=== PATIENT | male | born 1950 | race Caucasian/White ===

== ENCOUNTER → 2016-07-03 | Outpatient (CLI) | payer MEDICARE ==
[~2016-07-03] MED LIST: ALDACTONE 25MG25 M1 PO; ALDACTONE25 MG PO; ASPIRIN 32325 MG/TAB PO; ASPIRIN 81M81 MG/TA2 PO; ASPIRIN E.C. 8181 MG PO; BUMEX 1MG TA1 MG/TA1 PO; CLONAZEPAM PO; CLONAZEPAM0.5 M1 PO; CORDARONE200 MG/TAB PO; K-DUR20 MEQ PO; KLONOPIN 1MG1 MG PO; LASIX 20MG TABL20 MG PO; LASIX 40MG TABL40 MG PO; LASIX20 MG PO; LIPITOR 10MG10 MG PO; LIPITOR20 MG PO; LOPRESSOR 225 MG/TAB PO; MICRO-K 1010 MEQ PO; NITROQUICK0.4 MG SL; NITROSTAT0.4 MG/TAB SL; PACERONE200 MG PO; PAXIL PO; PEPCID 20MG TAB20 MG PO; PLAVIX 75MG TAB75 MG PO; PRILOSEC 20MG20 MG PO; PRINIVIL10 MG PO; PRINIVIL2.5 MG PO; PROVENTIL0.09 MG/A1 IH; TOPROL XL 50MG50 MG PO; ZESTRIL 5MG5 MG PO; ZESTRIL5 MG PO; ZOCOR 20MG20 MG PO; ZOCOR 40MG40 MG PO; ZOCOR 80MG80 MG PO; ZOCOR40 MG PO
== END ==
LOC: COL.RAD 06-30 09:45
DX: I71.4 Abdominal aortic aneurysm, without rupture (principal)

== ENCOUNTER → 2017-01-05 | Outpatient (CLI) | payer MEDICARE | LOC: COL.RAD 09:24 | DX: I71.4 Abdominal aortic aneurysm, without rupture (principal); I70.0 Atherosclerosis of aorta ==

== ENCOUNTER → 2017-01-15 | Outpatient (CLI) | payer MEDICARE | LOC: COL.RAD 09:06 | DX: I71.4 Abdominal aortic aneurysm, without rupture (principal); J98.4 Other disorders of lung; N20.0 Calculus of kidney; N32.89 Other specified disorders of bladder; J90 Pleural effusion, not elsewhere classified; I51.7 Cardiomegaly; I25.10 Atherosclerotic heart disease of native coronary artery without angina pectoris; R59.0 Localized enlarged lymph nodes | CPT/HCPCS: Q9967 ==

== ENCOUNTER 2017-04-03 06:48 | Day surgery (SDC) | payer MEDICARE, OTHER ==
[2017-04-03] VITALS (10 sets, daily range): BP systolic 112–128; BP diastolic 71–85; PULSE 59–60; TEMP 97.9–98.1
[~2017-04-03] VITALS: Ht 165.1 cm; Wt 80.9 kg
[2017-04-03] MEDS ORDERED: ENTRESTO 49 MG1 EACH PO (07:44)
[2017-04-03 07:49] LABS: HEMATOCRIT 43.3 % (42.0-52.0); MEAN CELL VOLUME 90 fl (80.0-100.0); MEAN CORPUSCULAR HEMOGLOBIN 29 pg (27.0-31.0); MEAN CORPUSCULAR HGB CONC 32 g/dl (33.0-37.0); MEAN PLATELET VOLUME 11.8 fl (7.4-10.4); PLATELET COUNT 173 K/mm3 (130-400); RED BLOOD COUNT 4.82 M/mm3 (4.20-5.60); WHITE BLOOD COUNT 8.1 K/mm3 (4.8-10.8)
[2017-04-03 07:58] LABS: PROTHROMBIN TIME 11.3 SECONDS (9.7-12.8)
[2017-04-03 07:59] LABS: CALCIUM 8.9 mg/dL (8.4-10.2); CREATININE, serum 1.05 mg/dL (0.66-1.25); POTASSIUM 4.1 mmol/L (3.4-5.0)
[2017-04-03] MEDS ORDERED: CEPHALEXIN500 M1 PO (10:15)
== END 2017-04-03 14:00 | disposition home or self-care (01) ==
LOC: COL.CAR 06:48
PROVIDERS: Internal Medicine Interventional Cardiology
DX: Z45.010 Encounter for checking and testing of cardiac pacemaker pulse generator [battery] (principal); I25.5 Ischemic cardiomyopathy; I25.10 Atherosclerotic heart disease of native coronary artery without angina pectoris; I50.22 Chronic systolic (congestive) heart failure; I71.4 Abdominal aortic aneurysm, without rupture; I48.91 Unspecified atrial fibrillation; Z79.01 Long term (current) use of anticoagulants; Z95.818 Presence of other cardiac implants and grafts; Z87.891 Personal history of nicotine dependence
CPT/HCPCS: C1882; J0690; J2250; J3010; J7030; J7050

== ENCOUNTER → 2018-05-05 | Outpatient (CLI) | payer MEDICARE, OTHER ==
[~2018-05-05] MED LIST changes: +CEPHALEXIN500 M1 PO; +ENTRESTO 49 MG1 EACH PO
== END ==
LOC: COL.RAD 11:22
DX: M47.812 Spondylosis without myelopathy or radiculopathy, cervical region (principal); M50.321 Other cervical disc degeneration at C4-C5 level; M48.02 Spinal stenosis, cervical region

== ENCOUNTER → 2018-06-24 | Outpatient (CLI) | payer MEDICARE, OTHER | LOC: COL.RAD 13:34 | DX: I71.4 Abdominal aortic aneurysm, without rupture (principal); Z95.828 Presence of other vascular implants and grafts | CPT/HCPCS: Q9967 ==

== ENCOUNTER → 2018-06-28 | Outpatient (CLI) | payer MEDICARE, OTHER | LOC: COL.RAD 10:06 | DX: K80.00 Calculus of gallbladder with acute cholecystitis without obstruction (principal); K76.0 Fatty (change of) liver, not elsewhere classified ==

== ENCOUNTER → 2018-07-09 | Outpatient (CLI) | payer MEDICARE, OTHER | LOC: COL.RAD 09:44 | DX: K81.9 Cholecystitis, unspecified (principal) | CPT/HCPCS: A9537 ==

== ENCOUNTER → 2018-07-13 | Outpatient (CLI) | payer MEDICARE, OTHER | LOC: MHCPAIN 10:09 | DX: G89.29 Other chronic pain (principal); M47.812 Spondylosis without myelopathy or radiculopathy, cervical region; R51 Headache; M54.81 Occipital neuralgia; R42 Dizziness and giddiness | CPT/HCPCS: G0463 ==

== ENCOUNTER → 2018-09-06 | Outpatient (CLI) | payer MEDICARE, OTHER | LOC: MHCPAIN 10:38 | DX: G89.29 Other chronic pain (principal); R51 Headache; M47.812 Spondylosis without myelopathy or radiculopathy, cervical region | CPT/HCPCS: G0463 ==

== ENCOUNTER 2019-02-25 06:20 | Emergency (ER) | payer MEDICARE, OTHER ==
[~2019-02-25] VITALS: Ht 165.1 cm; Wt 81.8 kg
[2019-02-25 06:21] VITALS: TEMP 98.2
[2019-02-25 07:15] LABS: BASO % 0.1 % (0.0-2.0); EOS % 0.1 % (0-4.0); GRAN # 11.6 (1.4-6.5); GRAN % 85.8 % (42.2-75.2); HEMATOCRIT 42.9 % (42.0-52.0); LYMPH # 0.8 (1.2-3.4); LYMPH % 6.1 % (20.0-51.0); MEAN CELL VOLUME 93 fl (80.0-100.0); MEAN CORPUSCULAR HEMOGLOBIN 30 pg (27.0-31.0); MEAN CORPUSCULAR HGB CONC 33 g/dl (33.0-37.0); MEAN PLATELET VOLUME 11.3 fl (7.4-10.4); MONO % 7.1 % (1.7-9.3); PLATELET COUNT 162 K/mm3 (130-400); RED BLOOD COUNT 4.63 M/mm3 (4.20-5.60); REDCELL DISTRIBUTION WIDTH-CV 14.2 % (11.5-14.5)
[2019-02-25 07:24] LABS: ALANINE AMINOTRANSFERASE 28 U/L (21-72); ALBUMIN 3.5 gm/dL (3.5-5.0); ALKALINE PHOSPHATASE 121 U/L (50-136); ANION GAP 9 mmol/L (7-16); AST,SGOT 29 U/L (15-37); BILIRUBIN,TOTAL 2.6 mg/dL (0.0-1.0); BLOOD UREA NITROGEN 10 mg/dL (9-20); CALCIUM 8.5 mg/dL (8.4-10.2); CARBON DIOXIDE 23 mmol/L (22-30); CHLORIDE 104 mmol/L (98-107); GLUCOSE 129 mg/dL (74-106); POTASSIUM 4.1 mmol/L (3.4-5.0); SODIUM 136 mmol/L (137-145); TOTAL PROTEIN 6.7 gm/dL (6.4-8.2)
[2019-02-25 07:42] LABS: TROPONIN-I < 0.012 ng/mL (0.000-0.035)
[2019-02-25] MEDS ORDERED: LEVAQUIN 750MG750 M1 PO (09:31)
[2019-02-25] MEDS ORDERED: PREDNISONE20 MG PO (09:31)
[2019-02-25 10:15] VITALS: BP 121/72; PULSE 61
== END 2019-02-25 10:15 | disposition home or self-care (01) ==
LOC: COL.ER 06:20
PROVIDERS: Emergency Medicine
DX: J44.1 Chronic obstructive pulmonary disease with (acute) exacerbation (principal); J18.1 Lobar pneumonia, unspecified organism; F17.210 Nicotine dependence, cigarettes, uncomplicated; K21.9 Gastro-esophageal reflux disease without esophagitis; F41.9 Anxiety disorder, unspecified; I25.10 Atherosclerotic heart disease of native coronary artery without angina pectoris; Z79.82 Long term (current) use of aspirin; Z79.02 Long term (current) use of antithrombotics/antiplatelets
CPT/HCPCS: J7512

== ENCOUNTER 2019-05-17 18:31 | Inpatient (IN) | payer MEDICARE, OTHER ==
[~2019-05-17] VITALS: Ht 167.6 cm; Wt 85.8 kg
[2019-05-17] VITALS (107 sets, daily range): BP systolic 113–130; BP diastolic 81–122; PULSE 60–70; TEMP 97.5–97.7; O2SAT 94–99
[~2019-05-17 18:31] MED LIST changes: +LEVAQUIN 750MG750 M1 PO; +PREDNISONE20 MG PO
[2019-05-17 18:54] LABS: BASO # 0.1 (0.0-0.2); BASO % 0.4 % (0.0-2.0); EOS # 0.2 (0.0-0.7); GRAN # 12.1 (1.4-6.5); GRAN % 72.8 % (42.2-75.2); HEMOGLOBIN 13.4 g/dl (13.5-18.0); LYMPH # 2.9 (1.2-3.4); LYMPH % 17.5 % (20.0-51.0); MEAN CELL VOLUME 95 fl (80.0-100.0); MEAN CORPUSCULAR HEMOGLOBIN 29 pg (27.0-31.0); MEAN CORPUSCULAR HGB CONC 31 g/dl (33.0-37.0); MEAN PLATELET VOLUME 11.4 fl (7.4-10.4); MONO # 1.2 (0.1-0.6); MONO % 7.2 % (1.7-9.3); PLATELET COUNT 210 K/mm3 (130-400); RED BLOOD COUNT 4.65 M/mm3 (4.20-5.60); REDCELL DISTRIBUTION WIDTH-CV 15.3 % (11.5-14.5)
[2019-05-17 19:02] LABS: INR 1.1 (0.8-3.0); PROTHROMBIN TIME 12.7 SECONDS (9.7-12.8)
[2019-05-17 19:04] LABS: PARTIAL THROMBOPLASTIN TIME 27.8 SECONDS (26.0-37.0)
[2019-05-17 19:08] LABS: ALBUMIN 3.4 gm/dL (3.5-5.0); BILIRUBIN,TOTAL 1.5 mg/dL (0.0-1.0); CALCIUM 8.3 mg/dL (8.4-10.2); CREATININE, serum 1.19 (0.66-1.25); MAGNESIUM 2.1 mg/dL (1.6-2.3); POTASSIUM 4.6 mmol/L (3.4-5.0); TOTAL PROTEIN 6.3 gm/dL (6.4-8.2)
[2019-05-17 19:19] LABS: ARTERIAL BLD GAS O2 SATURATION 99.6 % (92-100); ARTERIAL BLD GAS TCO2 CT 18.7; ARTERIAL BLOOD GAS BASE EXCESS -6.5 (-2-2); ARTERIAL BLOOD GAS HCO3 17.8 meq/L (22-26); ARTERIAL BLOOD GAS pH 7.36 (7.35-7.45)
[2019-05-17 19:19] LABS: TROPONIN-I 0.017 ng/mL (0.000-0.035)
[2019-05-17 19:20] LABS: ARTERIAL BLOOD GAS PO2 252.4 mmHg (80-100)
[2019-05-17] MEDS ORDERED: TOPROL XL 50MG50 MG PO (19:31)
[2019-05-17] MEDS ORDERED: PRINIVIL10 MG PO (19:33)
[2019-05-17] MEDS ORDERED: PROAIR HFA0.09 MG/AC IH (19:36)
[2019-05-17 19:50] LABS: COLLECTION METHOD CLEAN CATCH
[2019-05-17 19:56] LABS: PH 7 (5-8); SQUAMOUS EPITHELIAL None Seen /hpf; URINE APPEARANCE Clear; URINE BACTERIA None Seen /hpf; URINE BILIRUBIN Negative (NEGATIVE); URINE BLOOD Negative (NEGATIVE); URINE COLOR Straw; URINE GLUCOSE Negative (NEGATIVE); URINE KETONE Negative (NEGATIVE); URINE LEUKOCYTE ESTERASE Negative (NEGATIVE); URINE NITRATE Negative (NEGATIVE); URINE PROTEIN(semi-quant) Negative (NEGATIVE); URINE RBC None Seen /hpf; URINE UROBILINOGEN Negative (NEGATIVE)
--- NOTE | 2019-05-17 21:57 | NUR ---
Patient arrives to ICU 4 via ED cart with BiPap in place. He ambulates with steady gait to ICU bed and is attached to monitors. Assessment and vitals as charted. Patient denies pain. Care assumed at this time.
--- NOTE | 2019-05-17 22:24 | NUR ---
SORIN Harrington rounds on patient at this time.
[2019-05-17 23:06] LABS: MAGNESIUM 1.8 mg/dL (1.6-2.3); PHOSPHOROUS 3.1 mg/dL (2.5-4.5)
[2019-05-17 23:21] LABS: TROPONIN-I 3 HR POST INITIAL 0.04 ng/mL (0.000-0.034)
[2019-05-17 23:38] LABS: THYROID STIMULATING HORMONE 2.35 uIU/mL (0.465-4.680)
[2019-05-18] VITALS (648 sets, daily range): BP systolic 96–109; BP diastolic 58–72; PULSE 59–72; TEMP 97.5–97.9; O2SAT 87–100
[2019-05-18 05:29] LABS: HEMOGLOBIN 12.4 g/dl (13.5-18.0); MEAN CELL VOLUME 92 fl (80.0-100.0); MEAN CORPUSCULAR HEMOGLOBIN 29 pg (27.0-31.0); MEAN CORPUSCULAR HGB CONC 32 g/dl (33.0-37.0); MEAN PLATELET VOLUME 10.9 fl (7.4-10.4); PLATELET COUNT 138 K/mm3 (130-400); RED BLOOD COUNT 4.22 M/mm3 (4.20-5.60); REDCELL DISTRIBUTION WIDTH-CV 15.2 % (11.5-14.5)
[2019-05-18 05:41] LABS: ALBUMIN 3.1 gm/dL (3.5-5.0); BILIRUBIN,TOTAL 1.4 mg/dL (0.0-1.0); CALCIUM 8.2 mg/dL (8.4-10.2); CREATININE, serum 1.14 (0.66-1.25); POTASSIUM 4.5 mmol/L (3.4-5.0); TOTAL PROTEIN 5.8 gm/dL (6.4-8.2)
[2019-05-18 06:59] LABS: BAND 9 % (0-10); LYMPHOCYTE 3 % (20.0-51.0); NEUTROPHILS 87 % (42.0-75.2)
[2019-05-18 07:00] LABS: PLATELET ESTIMATE NORMAL (NORMAL)
--- NOTE | 2019-05-18 08:00 | NUR ---
gave bedside report to RADHA Finn.
--- NOTE | 2019-05-18 13:35 | NUR ---
transferred to medical acc by house painter helper
[2019-05-18] MEDS ORDERED: RT ADVAIR 128 DISKUS IH (13:53)
--- NOTE | 2019-05-18 14:00 | NUR ---
Pt arrived to room 308 at this time. He is walking independently in the room. He is A/O x4. His breathing is even and unlabored on 2L, pt denies SOB, does not appear to be SOB on exertion. Bilateral upper lungs CTA, RLL expiratory wheeze. Pt denies any pain. HR regular, murmur appreciated. No N/V to report. No edema present. POC discussed with patient who verbalizes understanding. No needs at this time. Call light within reach.
[2019-05-19 00:18] VITALS: BP 113/56; PULSE 69; TEMP 97.7
[2019-05-19 03:26] VITALS: BP 100/63; PULSE 61; TEMP 97.4
--- NOTE | 2019-05-19 06:56 | NUR ---
Report given to RADHA Torres. Pt has no c/o pain or discomfort at this time. No further concerns at this time.
[2019-05-19 07:11] VITALS: BP 95/55; PULSE 65; TEMP 97.9
[2019-05-19 07:17] LABS: BASO % 0.2 % (0.0-2.0); EOS % 0.1 % (0-4.0); GRAN # 15.4 (1.4-6.5); GRAN % 87.9 % (42.2-75.2); HEMATOCRIT 39.5 % (42.0-52.0); HEMOGLOBIN 12.5 g/dl (13.5-18.0); LYMPH # 0.9 (1.2-3.4); LYMPH % 5.4 % (20.0-51.0); MEAN CELL VOLUME 92 fl (80.0-100.0); MEAN CORPUSCULAR HEMOGLOBIN 29 pg (27.0-31.0); MEAN CORPUSCULAR HGB CONC 32 g/dl (33.0-37.0); MEAN PLATELET VOLUME 11.7 fl (7.4-10.4); MONO % 5.5 % (1.7-9.3); PLATELET COUNT 175 K/mm3 (130-400); RED BLOOD COUNT 4.29 M/mm3 (4.20-5.60); REDCELL DISTRIBUTION WIDTH-CV 15.6 % (11.5-14.5)
[2019-05-19 07:30] LABS: CALCIUM 8.5 mg/dL (8.4-10.2); CREATININE, serum 1.44 (0.66-1.25); MAGNESIUM 2.2 mg/dL (1.6-2.3); POTASSIUM 4.2 mmol/L (3.4-5.0)
--- NOTE | 2019-05-19 09:08 | NUR ---
Pt assessment completed and charted. Pt A&O, sitting in bed. Morning medications administered per JUL. BP this am 95/55, holding diuretics and BP meds until discussing w/ hospitalist. Pt denies SOB, currently on 2L NC. Denies pain, dizziness, N/V/D. LS coarse throughout, heart RRR. Pulses strong bilaterally, BSx4. No other concerns expressed at this time.
[2019-05-19 11:27] VITALS: BP 102/87; PULSE 68; TEMP 97.6
--- NOTE | 2019-05-19 11:34 | NUR ---
Initial visit; Patient thanked Medical Office Rep for looking in on him, visiting and offering God's blessings.
--- NOTE | 2019-05-19 12:11 | NUR ---
Pt ambulatory in halls, off O2 at this time, satting at 96%. Morning medications administered that were held d/t soft BP. Lasix dc'd, not administered from this morning. POC discussed w/ pt who verbalized understanding. No other concerns at this time.
--- NOTE | 2019-05-19 13:48 | NUR ---
SW met with the patient to discuss discharge plan. The patient lives alone in [place]. He states that his sister, Pamela Amado (ph#[phone]), lives in [facility]. He reports independence with ADLs and does not have any DME. The patient's PCP is Dr. Oskar Weir and he receives his medications at [facility]. He reports no difficulties obtaining his meds. The patient has advanced directives in EMR, which listed his DPOA-HC as Mitzi Colón. The patient reports that this is not up-to-date and that he has a new DPOA-HC completed and it designates his friend, Luis Alfredo Dupont (ph#[phone]). SW encouraged the patient to bring a copy to the hospital. SW also notified Medical Records for them to delete the old DPOA-HC. The patient plans to return home upon discharge. No additional needs at this time.
[2019-05-19 16:42] VITALS: BP 102/72; PULSE 64; TEMP 97.9
[2019-05-19 19:37] VITALS: BP 109/70; PULSE 60; TEMP 97.8
--- NOTE | 2019-05-19 21:10 | NUR ---
Patient assessed at this time. Alert and oriented x 4, and able to make needs known. Denies having pain and discomfort. Peripheral IVs to bilateral ACs flushed. Each site without redness, warmth, swelling, and pain. Denies SOB and dyspnea. LS CTA. Respirations even and unlabored. HRR. Capillary refill less than 3 seconds. Non-tenting skin turgor. BSAx4. Abdomen soft and non-tender. No edema. Voices no questions, needs, or concerns at this time. Resting in room with call light within reach.
[2019-05-20] VITALS: BP 101/57; PULSE 65; TEMP 97.8
[2019-05-20 03:40] VITALS: BP 116/74; PULSE 63; TEMP 97.8
--- NOTE | 2019-05-20 06:00 | NUR ---
Patient has been resting in bed with eyes closed. Has voiced no questions, needs, or concerns. Call light is within reach.
[2019-05-20 06:14] LABS: BASO % 0.2 % (0.0-2.0); EOS # 0.1 (0.0-0.7); GRAN # 9.2 (1.4-6.5); GRAN % 73.7 % (42.2-75.2); HEMATOCRIT 41.1 % (42.0-52.0); HEMOGLOBIN 12.8 g/dl (13.5-18.0); LYMPH # 2.3 (1.2-3.4); LYMPH % 18.3 % (20.0-51.0); MEAN CELL VOLUME 93 fl (80.0-100.0); MEAN CORPUSCULAR HEMOGLOBIN 29 pg (27.0-31.0); MEAN CORPUSCULAR HGB CONC 31 g/dl (33.0-37.0); MEAN PLATELET VOLUME 10.9 fl (7.4-10.4); MONO # 0.8 (0.1-0.6); MONO % 6.1 % (1.7-9.3); PLATELET COUNT 176 K/mm3 (130-400); RED BLOOD COUNT 4.43 M/mm3 (4.20-5.60); REDCELL DISTRIBUTION WIDTH-CV 15.5 % (11.5-14.5)
[2019-05-20 06:30] LABS: CALCIUM 8.9 mg/dL (8.4-10.2); CREATININE, serum 1.25 (0.66-1.25); POTASSIUM 4.1 mmol/L (3.4-5.0)
[2019-05-20 08:16] VITALS: BP 119/75; PULSE 60; TEMP 97.9
--- NOTE | 2019-05-20 09:30 | NUR ---
Pt assessment completed and charted. Morning medications administered per JUL. Pt A&O, independent in room. Pt on room air, denies SOB, breathing is even and unlabored. Heart RRR, on tele. Pt denies pain, dizziness, N/V/D, abdominal pain. Pt denies needs at this time. Awaiting discharge orders. RAC and LAC INT IV flush w/o complications.
--- NOTE | 2019-05-20 09:30 | NUR ---
The patient is to discharge back home today, 05/20. SW met with the patient to present and explain the IM form. The patient verbalized understanding, signed, and he declined a copy. No additional needs at this time.
--- NOTE | 2019-05-20 12:29 | NUR ---
Pt discharged. Discharge instructions discussed and reviewed w/ patient who verbalized understanding. All questions answered, no further needs at this time. RAC and LAC INT IV dc'd w/o complications and catheter tips intact. Pt escorted out via WC by LAMBERTO Ball.
== END 2019-05-20 12:31 | disposition home or self-care (01) | DRG 871 ==
LOC: COL.ER 18:31 → ICU 19:18 → MEDICAL 05-18 13:47
PROVIDERS: Emergency Medicine; Nurse Practitioner Family; Physician Assistant; ADMIT Internal Medicine
PROC: 5A09457 Assistance with Respiratory Ventilation, 24-96 Consecutive Hours, Continuous Positive Airway Pressure (ICD-10-PCS; principal; 2019-05-17)
DX: A41.9 Sepsis, unspecified organism (principal); I21.A1 Myocardial infarction type 2; I50.23 Acute on chronic systolic (congestive) heart failure; J96.01 Acute respiratory failure with hypoxia; J44.1 Chronic obstructive pulmonary disease with (acute) exacerbation; I71.4 Abdominal aortic aneurysm, without rupture; I25.5 Ischemic cardiomyopathy; K21.9 Gastro-esophageal reflux disease without esophagitis; K76.0 Fatty (change of) liver, not elsewhere classified; Z66 Do not resuscitate; J44.9 Chronic obstructive pulmonary disease, unspecified; F41.9 Anxiety disorder, unspecified; I25.10 Atherosclerotic heart disease of native coronary artery without angina pectoris; T38.0X5A Adverse effect of glucocorticoids and synthetic analogues, initial encounter; I25.2 Old myocardial infarction; E11.65 Type 2 diabetes mellitus with hyperglycemia; Z95.0 Presence of cardiac pacemaker; Z95.818 Presence of other cardiac implants and grafts; Z87.891 Personal history of nicotine dependence; Z79.82 Long term (current) use of aspirin
CPT/HCPCS: 99223-AI; 99231-AI; 99239; A4216; C9113; J0456; J0696; J1650; J1940; J7050

== ENCOUNTER → 2019-10-24 | Outpatient (CLI) | payer MEDICARE, OTHER ==
[~2019-10-24] MED LIST changes: +PROAIR HFA0.09 MG/AC IH; +RT ADVAIR 128 DISKUS IH
== END ==
LOC: COL.RAD 14:46
DX: G44.319 Acute post-traumatic headache, not intractable (principal); M25.512 Pain in left shoulder; G31.9 Degenerative disease of nervous system, unspecified; J32.0 Chronic maxillary sinusitis

== ENCOUNTER → 2020-01-02 | Outpatient (CLI) | payer MEDICARE, OTHER | LOC: COL.RAD 09:20 | DX: R74.8 Abnormal levels of other serum enzymes (principal) ==

== ENCOUNTER → 2020-06-22 | Outpatient (CLI) | payer MEDICARE, OTHER | LOC: COL.RAD 07:46 | DX: K82.9 Disease of gallbladder, unspecified (principal); R74.8 Abnormal levels of other serum enzymes ==

== ENCOUNTER → 2020-06-27 | Outpatient (CLI) | payer MEDICARE, OTHER ==
[2020-06-27 11:08] LABS: BASO % 0.4 % (0.0-2.0); EOS # 0.1 (0.0-0.7); EOS % 0.8 % (0-4.0); GRAN % 77.2 % (42.2-75.2); HEMATOCRIT 43.1 % (42.0-52.0); HEMOGLOBIN 13.8 g/dl (13.5-18.0); LYMPH # 1.1 (1.2-3.4); LYMPH % 12.3 % (20.0-51.0); MEAN CELL VOLUME 93 fl (80.0-100.0); MEAN CORPUSCULAR HEMOGLOBIN 30 pg (27.0-31.0); MEAN CORPUSCULAR HGB CONC 32 g/dl (33.0-37.0); MEAN PLATELET VOLUME 11.4 fl (7.4-10.4); MONO # 0.7 (0.1-0.6); PLATELET COUNT 162 K/mm3 (130-400); RED BLOOD COUNT 4.66 M/mm3 (4.20-5.60); REDCELL DISTRIBUTION WIDTH-CV 17.2 % (11.5-14.5)
[2020-06-27 11:14] LABS: INR 1.1 (0.8-3.0); PROTHROMBIN TIME 12.3 SECONDS (9.7-12.8)
[2020-06-27 12:23] LABS: TOTAL IRON BINDING CAPACITY 364 ug/dL (261-462)
[2020-06-27 21:40] LABS: IRON,SERUM 60 ug/dL (35-150)
[2020-06-27 23:59] LABS: HEPATITIS A ANTIBODY-IGM Negative (Negative); HEPATITIS B SURFACE ANTIBODY <2.0 (()); HEPATITIS B SURFACE ANTIGEN Negative (Negative); HEPATITIS C VIRUS ANTIBODY Negative (Negative)
[2020-06-29 16:36] LABS: A1A PHENOTYPE 173 mg/dL (())
[2020-06-30 11:18] LABS: ANTISMOOTH MUSCLE ANTIBODY Negative (Negative)
== END ==
LOC: COL.LAB
PROVIDERS: Student in an Organized Health Care Education/Training Program
DX: R74.8 Abnormal levels of other serum enzymes (principal)

== ENCOUNTER 2021-01-29 01:32 | Emergency (ER) | payer MEDICARE, OTHER ==
[~2021-01-29] VITALS: Ht 167.6 cm; Wt 82.7 kg
[2021-01-29 01:34] VITALS: TEMP 98.5
[2021-01-29 02:05] LABS: BASO % 0.3 % (0.0-2.0); EOS # 0.1 (0.0-0.7); EOS % 1.1 % (0-4.0); GRAN # 8.3 (1.4-6.5); GRAN % 79.8 % (42.2-75.2); HEMATOCRIT 40.3 % (42.0-52.0); HEMOGLOBIN 13.2 g/dl (13.5-18.0); LYMPH # 1.1 (1.2-3.4); LYMPH % 10.1 % (20.0-51.0); MEAN CELL VOLUME 89 fl (80.0-100.0); MEAN CORPUSCULAR HEMOGLOBIN 29 pg (27.0-31.0); MEAN CORPUSCULAR HGB CONC 33 g/dl (33.0-37.0); MEAN PLATELET VOLUME 11.2 fl (7.4-10.4); MONO # 0.9 (0.1-0.6); MONO % 8.3 % (1.7-9.3); PLATELET COUNT 169 K/mm3 (130-400); RED BLOOD COUNT 4.52 M/mm3 (4.20-5.60); REDCELL DISTRIBUTION WIDTH-CV 14.5 % (11.5-14.5)
[2021-01-29 02:20] LABS: ALBUMIN 3.8 gm/dL (3.5-5.0); BILIRUBIN,TOTAL 0.9 mg/dL (0.0-1.0); CREATININE, serum 0.99 (0.66-1.25); POTASSIUM 3.8 mmol/L (3.4-5.0); TOTAL PROTEIN 6.9 gm/dL (6.4-8.2)
[2021-01-29 02:32] LABS: TROPONIN-I 0.012 ng/mL (0.000-0.035)
[2021-01-29 03:15] LABS: CALCIUM 8.7 mg/dL (8.4-10.2)
[2021-01-29 03:56] VITALS: BP 128/79; PULSE 77
== END 2021-01-29 03:58 | disposition home or self-care (01) ==
LOC: COL.ER 01:32
PROVIDERS: Personal Emergency Response Attendant
DX: I11.0 Hypertensive heart disease with heart failure (principal); I50.23 Acute on chronic systolic (congestive) heart failure; J96.00 Acute respiratory failure, unspecified whether with hypoxia or hypercapnia; N17.9 Acute kidney failure, unspecified; D72.829 Elevated white blood cell count, unspecified; J18.1 Lobar pneumonia, unspecified organism; Z95.0 Presence of cardiac pacemaker; E78.5 Hyperlipidemia, unspecified; I25.10 Atherosclerotic heart disease of native coronary artery without angina pectoris; J44.9 Chronic obstructive pulmonary disease, unspecified; I25.2 Old myocardial infarction; Z95.9 Presence of cardiac and vascular implant and graft, unspecified; Z79.02 Long term (current) use of antithrombotics/antiplatelets; Z79.899 Other long term (current) drug therapy; Z79.82 Long term (current) use of aspirin
CPT/HCPCS: J1940

== ENCOUNTER 2022-06-06 12:34 | Outpatient (RCR) | payer MEDICARE, OTHER ==
[~2022-06-06 12:34] MED LIST changes: +ALDACTONE50 MG PO; +CEFTIN500 MG PO; +JARDIANCE10 PO; +MAG-OX 400400 MG/TAB PO; +PRIL40 PO; -RT ADVAIR 128 DISKUS IH; +RT ADVAIR 228 DISKUS IH
== END 2022-06-13 15:28 | disposition home or self-care (01) ==
LOC: COL.CR 12:34
DX: I50.9 Heart failure, unspecified (principal)

== ENCOUNTER 2024-04-20 13:52 | Emergency (ER) | payer MEDICARE, OTHER ==
[~2024-04-20] VITALS: Ht 165.1 cm; Wt 75.0 kg
[~2024-04-20 13:52] MED LIST changes: +ALLEGRA 180MG180 MG PO; +ENTRESTO 24 MG1 EACH PO; -LIPITOR 10MG10 MG PO; +LIPITOR 80MG80 MG PO; +TOPROL XL 25MG25 MG PO
[2024-04-20 13:57] VITALS: TEMP 97.6
[2024-04-20 14:38] LABS: BASO % 0.2 % (0.0-2.0); EOS # 0.1 K/mm3 (0.0-0.7); EOS % 0.7 % (0.0-4.0); GRAN # 6.7 K/mm3 (1.4-6.5); GRAN % 71.2 % (42.2-75.2); HEMOGLOBIN 16.3 g/dl (13.5-18.0); LYMPH # 1.8 K/mm3 (1.2-3.4); LYMPH % 18.9 % (20.0-51.0); MEAN CELL VOLUME 88 fl (80.0-100.0); MEAN CORPUSCULAR HEMOGLOBIN 29 pg (27-31); MEAN CORPUSCULAR HGB CONC 33 g/dl (33.0-37.0); MEAN PLATELET VOLUME 11.1 fl (7.4-10.4); MONO # 0.8 K/mm3 (0.1-0.6); MONO % 8.5 % (1.7-9.3); PLATELET COUNT 118 K/mm3 (130-400); REDCELL DISTRIBUTION WIDTH-CV 16.8 % (11.5-14.5)
[2024-04-20 14:54] LABS: ALBUMIN 3.1 g/dL (3.4-4.8); CALCIUM 8.7 mg/dL (8.4-10.2); CREATININE, serum 1.26 mg/dL (0.72-1.25); POTASSIUM 3.2 mEq/L (3.5-4.5); TOTAL PROTEIN 6.6 g/dl (6.2-8.1)
[2024-04-20 15:06] LABS: TROPONIN-I 0.207 ng/mL (0.00-0.033)
[2024-04-20 15:38] VITALS: BP 96/75; PULSE 61
== END 2024-04-20 15:38 | disposition home or self-care (01) ==
LOC: COL.ER 13:52
PROVIDERS: Personal Emergency Response Attendant
DX: R55 Syncope and collapse (principal)